=== PATIENT | female | born 1960 | race Caucasian/White ===

== ENCOUNTER 2018-10-28 09:19 | Day surgery (SDC) | payer OTHER ==
[~2018-10-28] VITALS: Ht 160 cm; Wt 90.7 kg
[~2018-10-28 09:19] MED LIST: ADULT ASPIRIN R81 MG PO; AMLODIPINE5 MG PO; B1 HIGH POTENC100 MG PO; CITALOPRAM HYDR20 MG PO; CLARITIN10 M2 PO; D32000 UNIT PO; LIPITOR20 M1 PO; LOSARTAN POT100 MG PO; METOPROLOL SUC100 MG PO; OMEPRAZOLE20 M1 PO; SINGULAIR10 MG PO
[2018-10-28 11:05] VITALS: BP 107/68
== END 2018-10-28 11:18 | disposition home or self-care (01) | DRG 951 ==
LOC: ENDO 09:19
PROVIDERS: ATTEND Surgery
PROC: 0DJD8ZZ Inspection of Lower Intestinal Tract, Via Natural or Artificial Opening Endoscopic (ICD-10-PCS; principal; 2018-10-28)
DX: Z12.11 Encounter for screening for malignant neoplasm of colon (principal); K64.4 Residual hemorrhoidal skin tags; K64.8 Other hemorrhoids; I10 Essential (primary) hypertension; E78.5 Hyperlipidemia, unspecified; F41.1 Generalized anxiety disorder; Z86.010 Personal history of colon polyps